=== PATIENT | male | born 1995 | race Caucasian/White ===

== ENCOUNTER 2019-03-27 17:58 | Emergency (ER) | payer OTHER ==
[2019-03-27 18:42] VITALS: RESP 16; TEMP 98.5
[2019-03-27] MEDS ORDERED: LIDOCAINE 1% INJ 10MG/ML (20 ML MDV) SQ ONE (19:05)
--- NOTE | 2019-03-27 20:48 | ED ---
General Adult HPI - General Chief complaint: Skin/Abscess/Foreign Body Stated complaint: cellulitis Time Seen by Provider: 03/27/19 18:48 Source: family Limitations: no limitations - History of Present Illness Initial comments: Patient 23-year-old male presents to the emergency department with an abscess in the right groin. Patient states that the episodes started about 4 days ago is a small red lesion and has been slowly growing. Patient went to an urgent care yesterday when he was prescribed seven-day dose of Bactrim. Patient reports that the abscess grew overnight and now has become very painful. Patient states that he has not taken any other medication to relieve the pain. Patient reports keeping more compress over the lesion. Patient denies any numbness and tingling radiating to his right lower leg. Patient denies a fever, nausea, vomiting, headache. - Related Data Home Medications Medication Instructions Recorded Confirmed Sulfamethox-Tmp 800-160Mg [Bactrim 1 tab PO BID 03/27/19 03/27/19 DS 800-160 mg] Allergies Allergy/AdvReac Type Severity Reaction Status Date / Time ceftriaxone [From Rocephin] Allergy Rash/Hives Verified 03/27/19 20:19 Review of Systems ROS Statement: Those systems with pertinent positive or pertinent negative responses have been documented in the HPI. ROS Other: All systems not noted in ROS Statement are negative. 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 History of Any Multi-Drug Resistant Organisms: None Reported Past Surgical History: Cardiac Ablation Past Psychological History: No Psychological Hx Reported Smoking Status: Never smoker Past Alcohol Use History: None Reported Past Drug Use History: Marijuana General Exam Limitations: no limitations, language barrier General appearance: alert, in no apparent distress Head exam: Present: atraumatic, normocephalic, normal inspection Eye exam: Present: normal appearance, PERRL, EOMI Pupils: Present: normal accommodation Neck exam: Present: normal inspection Respiratory exam: Present: normal lung sounds bilaterally Cardiovascular Exam: Present: regular rate, normal rhythm, normal heart sounds Right Hip exam: Absent: normal inspection (Medial aspect of upper leg near her inguinal ligament.) Upper Leg exam: Present: normal inspection, full ROM Knee exam: Present: normal inspection, full ROM Lower Leg exam: Present: normal inspection, full ROM Foot/Toe exam: Present: normal inspection, full ROM Neurological exam: Present: alert, oriented X3 Psychiatric exam: Present: normal affect, normal mood Skin exam: Present: warm, other (3 cm in diameter abscess.) Expanded 1 - 3 cm indurated abscess with 1 cm of fluctuation in the center. Course Vital Signs 03/27/19 18:35 Temperature 98.5 F Pulse Rate 73 Respiratory 16 Rate Blood Pressure 122/65 O2 Sat by Pulse 97 Oximetry Procedures - Incision & Drainage Consent Obtained: verbal consent Site: lower extremity Size (cm): 3 Anesthetic Used: lidocaine 1% Amount (mLs): 5 I&D Cleaning Method: Alcohol Wipe Sterile Field Used?: Yes Scalpel Used: #11 Needle Aspiration Performed?: No Irrigation Performed?: No I&D Drainage Obtained: Pus, Blood Culture Obtained?: No Patient Tolerated Procedure: well Medical Decision Making - Medical Decision Making Patient's 23-year-old male presents to emergency department with an abscess on the right groin. Incision and drainage was performed with lidocaine for local anesthetic. Patient advised to continue taking the Bactrim for a seven-day period. Patient advised to follow primary care. Patient advised to follow proper wound care. Patient advised to return to emergency department if symptoms worsen. Case discussed with physician. Disposition Clinical Impression: Abscess of groin, right Disposition: HOME SELF-CARE Condition: Stable Instructions (If sedation given, give patient instructions): Abscess Incision and Drainage (ED) Additional Instructions: Patient advised to continue taking the Bactrim. Please return to emergency department if symptoms worsen. Please follow proper wound care and follow-up primary care. Is patient prescribed a controlled substance at d/c from ED?: No Referrals: Owen Marlow Jr, DO [Primary Care Provider] - 1-2 days Decision Time: 20:48
[2019-03-27 21:55] VITALS: BP 121/70; PULSE 72
== END 2019-03-27 21:55 | disposition home or self-care (01) ==
LOC: EC 17:58
DX: L02.214 Cutaneous abscess of groin (principal); Z88.1 Allergy status to other antibiotic agents
CPT/HCPCS: 99283; 10060; J2001

== ENCOUNTER 2019-07-01 20:36 | Emergency (ER) | payer OTHER ==
[2019-07-01 20:52] VITALS: TEMP 97.9
--- NOTE | 2019-07-01 21:52 | ED ---
Eye Problem HPI - General Chief complaint: Eye Problems Stated complaint: Eye Pain/Redness Time Seen by Provider: 07/01/19 21:01 Source: patient Mode of arrival: ambulatory Limitations: no limitations - History of Present Illness Initial comments: Patient is a 24-year-old male presenting to emergency Department with complaints of getting poked in his right eye with a finger. Patient states he was playing basketball today and another person poked him in his right eye. Patient states eye is little bit red and irritated feeling, and having clear discharge. Patient's denies blurry vision. Patient denies wearing contacts. No other complaints at this time. - Related Data Previous Rx's Medication Instructions Recorded Erythromycin Ophth Oint [Romycin 1 applic RIGHT EYE QID 5 Days #1 07/01/19 Ophth Oint] tube Allergies Allergy/AdvReac Type Severity Reaction Status Date / Time ceftriaxone [From Rocephin] Allergy Rash/Hives Verified 03/27/19 20:19 Review of Systems ROS Statement: Those systems with pertinent positive or pertinent negative responses have been documented in the HPI. ROS Other: All systems not noted in ROS Statement are negative. 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 History of Any Multi-Drug Resistant Organisms: None Reported Past Surgical History: Cardiac Ablation Past Psychological History: No Psychological Hx Reported Smoking Status: Never smoker Past Alcohol Use History: None Reported Past Drug Use History: Marijuana General Exam - General Exam Comments Initial Comments: GENERAL: Well-appearing, well-nourished and in no acute distress. HEAD: Atraumatic, normocephalic. EYES: Pupils equal round and reactive to light, extraocular movements intact, sclera lightly injected on the right. conjunctiva are normal. Patient is having clear discharge. Patient has a slight tear of the bottom eyelid. Visual acuity is normal. ENT: TMs normal, nares patent, oropharynx clear without exudates. Moist mucous membranes. NECK: Normal range of motion, supple without lymphadenopathy or JVD. LUNGS: Breath sounds clear to auscultation bilaterally and equal. No wheezes rales or rhonchi. HEART: Regular rate and rhythm without murmurs, rubs or gallops. ABDOMEN: Soft, nontender, normoactive bowel sounds. No guarding, no rebound. No masses appreciated. : Deferred EXTREMITIES: Normal range of motion, no pitting or edema. No clubbing or cyanosis. NEUROLOGICAL: Cranial nerves II through XII grossly intact. Normal speech, normal gait. PSYCH: Normal mood, normal affect. SKIN: Warm, Dry, normal turgor, no rashes or lesions noted. Limitations: no limitations Course Vital Signs 07/01/19 07/01/19 20:48 22:33 Temperature 97.9 F 97.9 F Pulse Rate 70 72 Respiratory 20 17 Rate Blood Pressure 136/79 132/79 O2 Sat by Pulse 97 98 Oximetry Medical Decision Making - Medical Decision Making Patient is a 24-year-old male presenting with right eye irritation after getting poked in the eye while playing basketball. Patient's visual acuity is normal. Patient has some redness of the sclera as well as some clear discharge. Patient's pain is minimal. A small corneal abrasion was seen with forcing stain. Patient also has a small tear of the lower eyelid. Patient will be placed on diabetic ointment. Patient will follow up with ophthalmology if symptoms do not improve in one week. Return parameters were discussed with the patient he verbalizes understanding. Patient is stable for discharge. Case discussed with . Disposition Clinical Impression: Corneal abrasion Disposition: HOME SELF-CARE Condition: Stable Instructions (If sedation given, give patient instructions): Corneal Abrasion (ED) Additional Instructions: Please return to the Emergency Department if symptoms worsen or any other concerns. Prescriptions: Erythromycin Ophth Oint [Romycin Ophth Oint] 1 applic RIGHT EYE QID 5 Days #1 tube Is patient prescribed a controlled substance at d/c from ED?: No Referrals: Owen Marlow Jr, [Primary Care Provider] - 1-2 days
[2019-07-01 22:58] VITALS: BP 132/79; PULSE 72; RESP 17
== END 2019-07-01 22:34 | disposition home or self-care (01) ==
LOC: EC 20:36
DX: S05.01XA Injury of conjunctiva and corneal abrasion without foreign body, right eye, initial encounter (principal); Z88.1 Allergy status to other antibiotic agents; W22.8XXA Striking against or struck by other objects, initial encounter; Y93.67 Activity, basketball; Y92.320 Baseball field as the place of occurrence of the external cause
CPT/HCPCS: 99283

== ENCOUNTER → 2025-02-10 | Outpatient (CLI) | payer OTHER ==
[2025-02-10 19:11] LABS: Basophils # (A) 0.03 X 10*3/uL (0.00-0.10); Basophils % (A) 1.1 %; Eosinophils # (A) 0.09 X 10*3/uL (0.04-0.35); Eosinophils % (A) 3.3 %; HCT 42.9 % (39.6-50.0); Lymphocytes # (A) 1.22 X 10*3/uL (0.90-5.00); Lymphocytes % (A) 44.4 %; MCH 29.2 pg (27.0-32.0); MCV 83.5 FL (80.0-97.0); Mean Platelet Volume 10.2 FL (9.5-12.2); Monocytes % (A) 10.9 %; NRBC Per 100 WBC 0 X 10*3/uL (0.00-0.01); Neutrophils # (A) 1.09 X 10*3/uL (1.80-7.70); Neutrophils % (A) 39.6 %; Platelet Count 148 X 10*3/uL (140-440); RBC 5.14 X 10*6/uL (4.40-5.60); RDW 13.5 % (11.5-14.5); WBC 2.75 X 10*3/uL (4.50-10.00)
[2025-02-10 19:18] LABS: ALT 16 U/L (10-49); AST 27 U/L (14-35); Albumin 4.5 g/dL (3.8-4.9); Albumin/Globulin Ratio 1.61 Ratio (1.60-3.17); Alkaline Phosphatase 60 U/L (41-126); BUN/Creat Ratio 12.27 Ratio (12.00-20.00); Blood Urea Nitrogen 13.5 mg/dL (9.0-27.0); Calcium 9.1 mg/dL (8.7-10.3); Carbon Dioxide 26.7 mmol/L (21.6-31.8); Chloride 103 mmol/L (96-109); Globulin 2.8 g/dL (1.6-3.3); Glucose 99 mg/dL (70-110); Potassium 4.2 mmol/L (3.5-5.5); Sodium 139 mmol/L (135-145); Total Bilirubin 2.6 mg/dL (0.3-1.2); Total Protein 7.3 g/dL (6.2-8.2)
[2025-02-11 13:13] LABS: HIV-1 RNA DETECTED (Not detected); LOG HIV Copies/mL 4.34 (<1.30)
[2025-02-11 13:39] LABS: T4/T8 Ratio (CD4:CD8) 0.3 (1.0-3.7)
== END | disposition home or self-care (01) ==
LOC: LABWHC1 14:43
PROVIDERS: ATTEND Internal Medicine Infectious Disease
DX: B20 Human immunodeficiency virus [HIV] disease (principal)
CPT/HCPCS: 36415; 80053; 85025; 86360; 86480; 86682; 87536